=== PATIENT | female | born 1965 | race Caucasian/White ===

== ENCOUNTER 2021-01-10 19:35 | Emergency (ER) | payer OTHER, MEDICAID ==
--- NOTE | 2021-01-10 20:17 | EDM.PDOC ---
ED HPI GENERAL MEDICAL PROBLEM - General Chief Complaint: Upper Extremity Injury/Pain Stated Complaint: FELL ON ICE LT ARM PAIN Time Seen by Provider: 01/10/21 20:02 Source of Information: Reports: Patient History Limitations: Reports: No Limitations - History of Present Illness INITIAL COMMENTS - FREE TEXT/NARRATIVE: Sowmya is a 55-year-old female presenting to the ED for left elbow and back pain after falling on the ice earlier today. Patient was in usual state of health when she slipped on the ice falling backwards striking her back and left elbow. Since the fall she has had increasing pain in the elbow with a funny sensation when she flexes or extends the elbow. She also is experiencing some upper thoracic back pain but has no concerns related to this. She had no loss of consciousness. She denies any headache, numbness or tingling, vision changes, chest pain or shortness of breath, nausea or vomiting, abdominal pain, diarrhea or constipation. - Related Data Allergies Allergy/AdvReac Type Severity Reaction Status Date / Time codeine Allergy Irritabilit Verified 01/10/21 20:04 y Home Meds: Home Meds Alendronate Sodium [Fosamax] 1 tab PO WEEKLY 01/10/21 [History] Review of Systems - Review of Systems Review Of Systems: See Below Constitutional: Reports: No Symptoms Eyes: Reports: No Symptoms Ears: Reports: No Symptoms Nose: Reports: No Symptoms Mouth/Throat: Reports: No Symptoms Respiratory: Reports: No Symptoms Cardiovascular: Reports: No Symptoms GI/Abdominal: Reports: No Symptoms Genitourinary: Reports: No Symptoms Musculoskeletal: Reports: Back Pain (Mild upper back pain), Joint Pain (Left elbow pain) Skin: Reports: Bruising (On the dorsal left elbow) Neurological: Reports: No Symptoms Psychiatric: Reports: No Symptoms ED EXAM, GENERAL - Physical Exam Exam: See Below Exam Limited By: No Limitations General Appearance: Alert, No Apparent Distress Eye Exam: Bilateral Eye: EOMI, PERRL Head: Atraumatic, Normocephalic Neck: Normal Inspection, Supple, Non-Tender Respiratory/Chest: No Respiratory Distress, Lungs Clear Cardiovascular: Normal Peripheral Pulses, Regular Rate, Rhythm Peripheral Pulses: 2+: Radial (L), Radial (R) Back Exam: Normal Inspection, Full Range of Motion, Paraspinal Tenderness (Mild upper thoracic tenderness to palpation.). No: Vertebral Tenderness Extremities: Arm Pain (Pain over the dorsal left elbow with some ecchymosis but no obvious deformity.). No: Joint Swelling, Limited Range of Motion Neurological: Alert, Oriented, Normal Cognition, No Motor/Sensory Deficits Psychiatric: Normal Affect, Normal Mood Skin Exam: Ecchymosis (Small ecchymosis over the dorsal left elbow) Lymphatic: No Adenopathy Course - Vital Signs Last Recorded V/S: Last Vital Signs Temp 36.5 C 01/10/21 20:11 Pulse 81 01/10/21 20:11 Resp 14 01/10/21 20:11 BP 154/89 H 01/10/21 20:11 Pulse Ox - Orders/Labs/Meds Orders: Active Orders 24 hr Category Date Time Status Elbow Min 3V Lt [CR] Stat Exams 01/10/21 20:07 Ordered - Radiology Interpretation Free Text/Narrative:: View the three-view elbow x-ray. There is no evidence for an acute fracture or dislocation. There is negative sail sign to indicate an occult supracondylar fracture. The patient has normal range of motion. - Re-Assessments/Exams Free Text/Narrative Re-Assessment/Exam: 01/10/21 20:25 in all, it appears that the patient may have suffered a contusion to the left elbow and upper back. I do not see any evidence for an acute fracture or an occult supracondylar fracture with the absence of an anterior posterior sail sign on the elbow. Moreover, the patient has normal range of motion but does have bruising over the dorsal elbow. This is likely simply a contusion rather than any osseous abnormality. The patient does have very thin bone architecture due to osteoporosis. She is already on vitamin D and calcium as well as Fosamax. This time I think the patient can safely be discharged home. Activity as tolerated. She may want to ice the elbow and upper back and take Tylenol or ibuprofen for pain. Departure - Departure Time of Disposition: 20:27 Disposition: Home, Self-Care 01 Condition: Good Clinical Impression: Fall from slipping on ice Qualifiers: Encounter type: initial encounter Qualified Code(s): W00.9XXA - Unspecified fall due to ice and snow, initial encounter Upper back strain Qualifiers: Encounter type: initial encounter Qualified Code(s): S29.012A - Strain of muscle and tendon of back wall of thorax, initial encounter Contusion of left elbow Qualifiers: Encounter type: initial encounter Qualified Code(s): S50.02XA - Contusion of left elbow, initial encounter - Discharge Information *PRESCRIPTION DRUG MONITORING PROGRAM REVIEWED*: Not Applicable *COPY OF PRESCRIPTION DRUG MONITORING REPORT IN PATIENT CAROLYN: Not Applicable Instructions: Elbow Contusion, [id number], Thoracic Strain Referrals: Matias Roman MD [Primary Care Provider] - Forms: ED Department Discharge Care Plan Goals: Your x-rays look good and do not show any evidence of an acute fracture. Recommend icing the upper back and elbow. You may take Tylenol or ibuprofen for pain control. There are no restrictions for the use of your joints. Sepsis Event Note (ED) - Focused Exam Vital Signs: Vital Signs Temp Pulse Resp BP 01/10/21 20:11 36.5 C 81 14 154/89 H - Problem List & Annotations (1) Contusion of left elbow SNOMED Code(s): 59203917 Code(s): S50.02XA - CONTUSION OF LEFT ELBOW, INITIAL ENCOUNTER Status: Acute Priority: Medium Current Visit: Yes Qualifiers: Encounter type: initial encounter Qualified Code(s): S50.02XA - Contusion of left elbow, initial encounter (2) Fall from slipping on ice SNOMED Code(s): 804509540 Code(s): W00.9XXA - UNSPECIFIED FALL DUE TO ICE AND SNOW, INITIAL ENCOUNTER Status: Acute Priority: Medium Current Visit: Yes Qualifiers: Encounter type: initial encounter Qualified Code(s): W00.9XXA - Unspecified fall due to ice and snow, initial encounter (3) Upper back strain SNOMED Code(s): 538525917, [id number] Code(s): S29.012A - STRAIN OF MUSCLE AND TENDON OF BACK WALL OF THORAX, INIT Status: Acute Priority: Medium Current Visit: Yes Qualifiers: Encounter type: initial encounter Qualified Code(s): S29.012A - Strain of muscle and tendon of back wall of thorax, initial encounter - Problem List Review Problem List Initiated/Reviewed/Updated: Yes - My Orders Last 24 Hours: My Active Orders 01/10/21 20:07 Elbow Min 3V Lt [CR] Stat - Assessment/Plan Last 24 Hours: My Active Orders 01/10/21 20:07 Elbow Min 3V Lt [CR] Stat
--- NOTE | 2021-01-12 09:28 | CR ---
Elbow Min 3V Lt CLINICAL HISTORY: Fall, pain FINDINGS: No acute fracture or dislocation is noted. The fat pads are in normal position. Impression: Negative.
== END 2021-01-10 20:34 | disposition home or self-care (01) ==
LOC: JP.ED 19:35
DX: S29.012A Strain of muscle and tendon of back wall of thorax, initial encounter (principal); S50.02XA Contusion of left elbow, initial encounter; Z88.5 Allergy status to narcotic agent; W00.0XXA Fall on same level due to ice and snow, initial encounter
CPT/HCPCS: 73080-26-LT; 73080-LT; 99282; 99283

== ENCOUNTER 2022-02-11 21:56 | Emergency (ER) | payer OTHER, MEDICAID ==
[2022-02-11] MEDS ORDERED: Ibuprofen 400 MG Tab PO ONE (23:02)
== END 2022-02-11 23:26 | disposition home or self-care (01) ==
LOC: JP.ED 21:56
DX: S70.01XA Contusion of right hip, initial encounter (principal); S50.01XA Contusion of right elbow, initial encounter; Z88.5 Allergy status to narcotic agent; W18.30XA Fall on same level, unspecified, initial encounter
CPT/HCPCS: 72170; 72170-26; 73080-26-RT; 73080-RT; 73590-26-RT; 73590-RT; 73610-26-RT; 73610-RT; 99283; A9270-GY

== ENCOUNTER 2023-03-19 10:15 | Emergency (ER) | payer OTHER, MEDICAID ==
[2023-03-19] MEDS ORDERED: Triamcinolone Acetonide 40 MG/ML 1 ML SDV INJECT ONE (11:58)
[2023-03-19] MEDS ORDERED: Bupivacaine 0.5% 10 ML SDV INJECT ONE (11:58)
== END 2023-03-19 12:45 | disposition home or self-care (01) ==
LOC: JP.ED 10:15
DX: M75.31 Calcific tendinitis of right shoulder (principal); M19.90 Unspecified osteoarthritis, unspecified site; Z91.048 Other nonmedicinal substance allergy status; Z91.018 Allergy to other foods; Z88.5 Allergy status to narcotic agent; Z91.030 Bee allergy status
CPT/HCPCS: 73020; 99283; J3301; J3490